=== PATIENT | male | born 1965 | race Caucasian/White ===

== ENCOUNTER 2016-11-25 05:35 | Inpatient (IN) ==
[2016-11-25] MEDS ORDERED: ceFAZolin 2,000 MG in SODIUM CHLORIDE 0.9% 100 ML IV STA (05:41)
[2016-11-25] MEDS ORDERED: DIPH/TET/ACEL PERT BOOSTER VACCINE 0.5 ML VIAL IM ONE ×2 (05:41→05:44)
[2016-11-25] MEDS ORDERED: HYDROmorphone 2 MG/1 ML VIAL IV STA (05:43)
[2016-11-25] MEDS ORDERED: LACTATED RINGERS 1,000 ML IV STA (05:43)
[2016-11-25] MEDS ORDERED: ONDANSETRON 4 MG/2 ML VIAL IV STA (05:43)
[2016-11-25] MEDS ORDERED: ceFAZolin 1,000 MG VIAL ONE (05:44)
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
[2016-11-25] MEDS ORDERED: ACETAMINOPHEN 325 MG TABLET PO PRN (05:49)
[2016-11-25] MEDS ORDERED: ONDANSETRON 4 MG/2 ML VIAL IV PRN ×2 (05:49→08:17)
[2016-11-25] MEDS ORDERED: HYDROmorphone 2 MG/1 ML VIAL ONE (05:56)
[2016-11-25] MEDS ORDERED: ONDANSETRON 4 MG/2 ML VIAL ONE ×2 (05:56→06:15)
--- NOTE | 2016-11-25 05:56 | EKG Report ---
Stationary ECG Study [facility] ER Test Date: 11/25/2016 5:55:52 AM Pat Name: BECKY CODY Department: Room: Gender: M Web Master: VIOLA : 1965 Requested by: Jack Page Order Number: [id number] Reading MD: SAM TAFOYA Intervals [place] Rate: 66 P: 74 PA: 155 QRS: -20 QRSD: 101 T: 58 QT: 435 QTc: 449 Interpretive Statements SINUS RHYTHM SEPTAL MYOCARDIAL INFARCTION, PROBABLY OLD Electronically Signed On 11-27-16 15:10:03 CDT by SAM TAFOYA [email or web address]
[2016-11-25 06:00] LABS: Basophils % 0.2 % (0.0-0.8); Eosinophils # 0.1 10*3/uL (0.0-0.87); Eosinophils % 0.9 % (0.00-10.9); Immature Granulocytes % 0.7 %; Immature Granulocytes Absolute 0.09 #; Lymphocytes % 14.9 % (21.2-54.2); Mean Corpuscular HGB Conc 33.3 GM/DL (32-36); Mean Corpuscular Hemoglobin 30 PG (27-34); Mean Corpuscular Volume 90.5 FL (87-102); Monocytes # 0.9 10*3/uL (0.11-0.8); Monocytes % 7.1 % (1.7-12.7); Neutrophils # 10.1 10*3/uL (1.4-7.4); Neutrophils % 76.2 % (38.7-73.9); Platelet Count 303 T/CUMM (130-400); Red Blood Count 3.98 MC/CUMM (3.8-5.5); Red Cell Distribution Width 13.7 % (9.3-17.3); White Blood Count 13.2 T/CUMM (4-12)
[2016-11-25 06:09] LABS: INR 1.1; PT Patient Result 11.3 SECS; Partial Thromboplastin Time 28.2 SECS (0-40)
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
[2016-11-25] MEDS ORDERED: SUCCINYLCHOLINE 200 MG/10 ML VIAL ONE (06:15)
[2016-11-25] MEDS ORDERED: LIDOCAINE 1% 5 ML VIAL ONE (06:15)
[2016-11-25] MEDS ORDERED: NEOSTIGMINE 10 MG/10 ML VIAL ONE (06:15)
[2016-11-25] MEDS ORDERED: PROPOFOL 200 MG/20 ML VIAL IV ONE (06:15)
[2016-11-25] MEDS ORDERED: GLYCOPYRROLATE 0.4 MG/2 ML VIAL ONE (06:15)
[2016-11-25] MEDS ORDERED: ROCURONIUM 100 MG/10 ML VIAL IV ONE (06:15)
[2016-11-25 06:16] LABS: Lactic Acid 3.6 MMOL/L (0.4-2.0)
[2016-11-25 06:21] LABS: Apearance,Urine CLEAR (Clear); Bilirubin,Urine Negative (Negative); Blood, Urine Negative (Negative); Glucose,Urine (UA) Negative (Negative); Ketones,Urine 5 mg/dL (Negative); Mucus,Urine Few /LPF (Occasional); Nitrite,Urine Negative (Negative); Protein,Urine 30 MG/DL; RBC,Urine 1 /HPF (0-4); Urine Color Yellow (Yellow); Urine Specific Gravity 1.024 (1.001-1.035); WBC,Urine 1 /HPF (0-6)
[2016-11-25 06:33] LABS: Barbiturates Screen,Urine Negative (Negative); Benzodiazepines Screen,Urine Negative (Negative); Cannabinoid Screen,Urine Positive (Negative); Opiate Screen,Urine Negative (Negative); Phencyclidine Screen,Urine Negative (Negative)
[2016-11-25 06:47] LABS: Alanine Aminotransferase 21 U/L (16-61); Albumin 2.3 G/DL (3.4-5.0); Alkaline Phosphatase 47 U/L (45-117); Amylase 31 U/L (25-115); Aspartate Amino Transferase 21 U/L (0-37); Blood Urea Nitrogen 17 MG/DL (7-18); Calcium 7.7 MG/DL (8.5-10.1); Glucose 118 MG/DL (74-106); Osmolality,Calculated 283.3 MOS/KG (273-304); Potassium 3.9 MMOL/L (3.5-5.1); Sodium 141 MMOL/L (136-145); Total Protein 4.6 G/DL (6.4-8.3)
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
[2016-11-25] MEDS ORDERED: MIDAZOLAM 2 MG/2 ML VIAL ONE (08:33)
[2016-11-25] MEDS ORDERED: SEVOFLURANE 1 UNIT/15 MINUTE INH ONE (08:33)
[2016-11-25] MEDS ORDERED: LACTATED RINGERS 2,000 ML IV ONE (08:33)
[2016-11-25] MEDS ORDERED: fentaNYL 100 MCG/2 ML VIAL ONE (08:33)
[2016-11-25] MEDS ORDERED: HYDROmorphone PCA 30 MG/30 ML SYRINGE IV ONE (08:46)
[2016-11-25] MEDS: HYDROmorphone PCA 30 MG/30 ML SYRINGE IV SCH (08:48)
[2016-11-25 08:55] LABS: Hematocrit 36.4 VOL% (42.0-52.0); Hemoglobin 12.1 GM/DL (14.0-18.0)
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
[2016-11-25] MEDS: SODIUM CHLORIDE 0.9% 1,000 ML IV SCH ×3 (09:40→23:21)
[2016-11-25] MEDS: PANTOPRAZOLE 40 MG TABLET PO SCH (09:41)
[2016-11-25] MEDS: PANTOPRAZOLE 40 MG VIAL IV SCH (09:50)
[2016-11-25] MEDS: KETOROLAC 15 MG/1 ML VIAL IV SCH ×3 (09:51→21:04)
[2016-11-25 12:29] LABS: Bilirubin,Total < 0.39 MG/DL (0.2-1.0)
[2016-11-25] MEDS: metroNIDAZOLE INJ 500 MG in PREMIX 1 EACH IV SCH ×2 (14:17→21:38)
--- NOTE | 2016-11-25 14:30 | Anesthesia Post-Op ---
Anesthesia Post OP - Post Ansesthetic Evaluation Patient seen in post op: Yes Resp: within normal limits CV: within normal limits Mental: within normal limits Temp: within normal limits Uzky-Ky-[id number]: within normal limits Nausea and Vomiting: within normal limits Pain: within normal limits
[2016-11-25] MEDS: ceFAZolin 2,000 MG in PREMIX 1 EACH IV SCH ×2 (15:22→21:59)
[2016-11-25 16:34] LABS: Hematocrit 32.9 VOL% (42.0-52.0); Hemoglobin 11.1 GM/DL (14.0-18.0)
[2016-11-25] MEDS ORDERED: SODIUM CHLORIDE 0.9% 1,000 ML IV ONE (22:14)
[2016-11-26 00:30] LABS: Basophils % 0.1 % (0.0-0.8); Eosinophils % 0.1 % (0.00-10.9); Hematocrit 29.9 VOL% (42.0-52.0); Hemoglobin 9.8 GM/DL (14.0-18.0); Immature Granulocytes % 0.5 %; Immature Granulocytes Absolute 0.05 #; Lymphocytes # 1.3 10*3/uL (1.4-4.0); Mean Corpuscular HGB Conc 32.8 GM/DL (32-36); Mean Corpuscular Hemoglobin 31 PG (27-34); Mean Corpuscular Volume 93.4 FL (87-102); Mean Platelet Volume 9.9 FL (9.6-12.0); Monocytes # 0.6 10*3/uL (0.11-0.8); Monocytes % 5.5 % (1.7-12.7); Neutrophils % 81.8 % (38.7-73.9); Platelet Count 237 T/CUMM (130-400)
[2016-11-26 00:59] LABS: Albumin 2.1 G/DL (3.4-5.0); Bilirubin,Total 0.4 MG/DL (0.2-1.0); Calcium 7.2 MG/DL (8.5-10.1); Osmolality,Calculated 292.6 MOS/KG (273-304); Potassium 4.1 MMOL/L (3.5-5.1); Total Protein 4.5 G/DL (6.4-8.3)
[2016-11-26] MEDS: KETOROLAC 15 MG/1 ML VIAL IV SCH ×4 (02:51→20:13)
[2016-11-26 03:47] LABS: Platelet Estimate Normal
[2016-11-26] MEDS: SODIUM CHLORIDE 0.9% 1,000 ML IV SCH (06:20)
[2016-11-26] MEDS: ceFAZolin 2,000 MG in PREMIX 1 EACH IV SCH ×3 (06:37→21:59)
[2016-11-26] MEDS: metroNIDAZOLE INJ 500 MG in PREMIX 1 EACH IV SCH ×3 (07:02→22:49)
[2016-11-26] MEDS: PANTOPRAZOLE 40 MG VIAL IV SCH (09:10)
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
[2016-11-26] MEDS: PANTOPRAZOLE 40 MG TABLET PO SCH (12:36)
[2016-11-26] MEDS: HYDROmorphone PCA 30 MG/30 ML SYRINGE IV SCH (12:41)
[2016-11-26] MEDS: DEXT 5% NACL 0.45% KCL 40 MEQ 40 MEQ/1,000 ML BAG IV SCH ×2 (13:11→14:09)
[2016-11-26] MEDS: CARVEDILOL 3.125 MG TABLET PO SCH (20:14)
[2016-11-27] MEDS: DEXT 5% NACL 0.45% KCL 40 MEQ 40 MEQ/1,000 ML BAG IV SCH ×3 (00:02→19:25)
[2016-11-27] MEDS: KETOROLAC 15 MG/1 ML VIAL IV SCH ×4 (02:14→21:55)
[2016-11-27] MEDS: metroNIDAZOLE INJ 500 MG in PREMIX 1 EACH IV SCH (05:38)
[2016-11-27 06:13] LABS: Basophils % 0.2 % (0.0-0.8); Eosinophils # 0.2 10*3/uL (0.0-0.87); Eosinophils % 2.5 % (0.00-10.9); Hematocrit 25.4 VOL% (42.0-52.0); Hemoglobin 8.2 GM/DL (14.0-18.0); Immature Granulocytes % 0.4 %; Lymphocytes # 1.6 10*3/uL (1.4-4.0); Lymphocytes % 19.3 % (21.2-54.2); Mean Corpuscular HGB Conc 32.3 GM/DL (32-36); Mean Corpuscular Hemoglobin 30 PG (27-34); Mean Corpuscular Volume 94.1 FL (87-102); Mean Platelet Volume 10.7 FL (9.6-12.0); Monocytes # 0.8 10*3/uL (0.11-0.8); Monocytes % 9.9 % (1.7-12.7); Neutrophils # 5.7 10*3/uL (1.4-7.4); Neutrophils % 67.7 % (38.7-73.9); Platelet Count 216 T/CUMM (130-400); Red Cell Distribution Width 13.9 % (9.3-17.3); White Blood Count 8.4 T/CUMM (4-12)
[2016-11-27 06:14] LABS: Immature Granulocytes Absolute 0.03 #
[2016-11-27] MEDS: ceFAZolin 2,000 MG in PREMIX 1 EACH IV SCH (06:33)
[2016-11-27 06:37] LABS: Calcium 7.5 MG/DL (8.5-10.1); Osmolality,Calculated 279.3 MOS/KG (273-304)
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
[2016-11-27] MEDS: PANTOPRAZOLE 40 MG TABLET PO SCH (10:40)
[2016-11-27] MEDS: CARVEDILOL 3.125 MG TABLET PO SCH ×2 (10:40→21:54)
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
[2016-11-27 12:50] LABS: Basophils % 0.3 % (0.0-0.8); Eosinophils # 0.3 10*3/uL (0.0-0.87); Eosinophils % 3.8 % (0.00-10.9); Hematocrit 28.5 VOL% (42.0-52.0); Hemoglobin 9.3 GM/DL (14.0-18.0); Immature Granulocytes % 0.6 %; Immature Granulocytes Absolute 0.04 #; Lymphocytes # 1.6 10*3/uL (1.4-4.0); Lymphocytes % 22.1 % (21.2-54.2); Mean Corpuscular HGB Conc 32.6 GM/DL (32-36); Mean Corpuscular Hemoglobin 31 PG (27-34); Mean Corpuscular Volume 93.4 FL (87-102); Monocytes # 0.6 10*3/uL (0.11-0.8); Monocytes % 8.5 % (1.7-12.7); Neutrophils # 4.7 10*3/uL (1.4-7.4); Neutrophils % 64.7 % (38.7-73.9); Platelet Count 233 T/CUMM (130-400); Red Blood Count 3.05 MC/CUMM (3.8-5.5); Red Cell Distribution Width 13.6 % (9.3-17.3); White Blood Count 7.2 T/CUMM (4-12)
[2016-11-27] MEDS: HYDROmorphone PCA 30 MG/30 ML SYRINGE IV SCH (22:00)
[2016-11-28] MEDS: KETOROLAC 15 MG/1 ML VIAL IV SCH (03:25)
[2016-11-28] MEDS: DEXT 5% NACL 0.45% KCL 40 MEQ 40 MEQ/1,000 ML BAG IV SCH (05:38)
[2016-11-28 06:34] LABS: Basophils % 0.1 % (0.0-0.8); Eosinophils # 0.4 10*3/uL (0.0-0.87); Eosinophils % 3.9 % (0.00-10.9); Hematocrit 26.3 VOL% (42.0-52.0); Hemoglobin 8.7 GM/DL (14.0-18.0); Immature Granulocytes % 0.6 %; Immature Granulocytes Absolute 0.06 #; Lymphocytes # 1.4 10*3/uL (1.4-4.0); Lymphocytes % 14.3 % (21.2-54.2); Mean Corpuscular HGB Conc 33.1 GM/DL (32-36); Mean Corpuscular Hemoglobin 30 PG (27-34); Mean Platelet Volume 10.5 FL (9.6-12.0); Monocytes # 0.7 10*3/uL (0.11-0.8); Monocytes % 7.6 % (1.7-12.7); Neutrophils # 7.1 10*3/uL (1.4-7.4); Neutrophils % 73.5 % (38.7-73.9); Platelet Count 269 T/CUMM (130-400); Red Blood Count 2.86 MC/CUMM (3.8-5.5); Red Cell Distribution Width 13.2 % (9.3-17.3); White Blood Count 9.7 T/CUMM (4-12)
[2016-11-28] MEDS: CARVEDILOL 3.125 MG TABLET PO SCH ×2 (07:59→20:56)
[2016-11-28] MEDS: PANTOPRAZOLE 40 MG TABLET PO SCH (08:00)
[2016-11-28] MEDS: HYDROmorphone PCA 30 MG/30 ML SYRINGE IV SCH (08:00)
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
[2016-11-29] MEDS: DEXT 5% NACL 0.45% KCL 40 MEQ 40 MEQ/1,000 ML BAG IV SCH ×2 (04:32→07:59)
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
[2016-11-29] MEDS: HYDROmorphone PCA 30 MG/30 ML SYRINGE IV SCH (08:00)
[2016-11-29] MEDS: PANTOPRAZOLE 40 MG TABLET PO SCH (08:00)
[2016-11-29] MEDS: CARVEDILOL 3.125 MG TABLET PO SCH ×2 (08:00→21:11)
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
[2016-11-29] MEDS ORDERED: HYDROmorphone 2 MG/1 ML VIAL IV PRN (08:13)
[2016-11-29] MEDS: ALUMINUM/MAGNES/SIMETH MAX STR 30 ML UDCUP PO SCH ×3 (09:30→17:33)
[2016-11-29] MEDS: DOCUSATE SODIUM 100 MG CAPSULE PO SCH ×2 (09:30→21:11)
[2016-11-29] MEDS: oxyCODONE/ACETAMINOPHEN 5-325 MG TABLET PO PRN ×2 (10:30→16:15)
[2016-11-30 05:27] LABS: Basophils % 0.4 % (0.0-0.8); Eosinophils # 0.4 10*3/uL (0.0-0.87); Eosinophils % 5.4 % (0.00-10.9); Hematocrit 31.1 VOL% (42.0-52.0); Hemoglobin 10.7 GM/DL (14.0-18.0); Immature Granulocytes % 1.8 %; Immature Granulocytes Absolute 0.14 #; Lymphocytes # 1.4 10*3/uL (1.4-4.0); Lymphocytes % 18.7 % (21.2-54.2); Mean Corpuscular HGB Conc 34.4 GM/DL (32-36); Mean Corpuscular Hemoglobin 31 PG (27-34); Mean Corpuscular Volume 90.1 FL (87-102); Mean Platelet Volume 9.5 FL (9.6-12.0); Monocytes # 1.1 10*3/uL (0.11-0.8); Monocytes % 14.6 % (1.7-12.7); Neutrophils # 4.6 10*3/uL (1.4-7.4); Neutrophils % 59.1 % (38.7-73.9); Platelet Count 379 T/CUMM (130-400); Red Blood Count 3.45 MC/CUMM (3.8-5.5); Red Cell Distribution Width 13.2 % (9.3-17.3); White Blood Count 7.7 T/CUMM (4-12)
[2016-11-30 05:54] LABS: Calcium 8.6 MG/DL (8.5-10.1); Magnesium 2.3 MG/DL (1.8-2.4); Osmolality,Calculated 279.4 MOS/KG (273-304); Potassium 4.8 MMOL/L (3.5-5.1)
[2016-11-30] MEDS: oxyCODONE/ACETAMINOPHEN 5-325 MG TABLET PO PRN ×2 (07:46→17:20)
[2016-11-30] MEDS ORDERED: MAGNESIUM HYDROXIDE SUSP 30 ML UDCUP PO ONE (07:52)
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
[2016-11-30] MEDS: DOCUSATE SODIUM 100 MG CAPSULE PO SCH ×2 (09:46→21:44)
[2016-11-30] MEDS: PANTOPRAZOLE 40 MG TABLET PO SCH (09:46)
[2016-11-30] MEDS: CARVEDILOL 3.125 MG TABLET PO SCH ×2 (09:46→21:45)
[2016-11-30] MEDS: ALUMINUM/MAGNES/SIMETH MAX STR 30 ML UDCUP PO SCH ×3 (09:48→17:20)
[2016-12-01] MEDS: oxyCODONE/ACETAMINOPHEN 5-325 MG TABLET PO PRN (06:47)
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
[2016-12-01] MEDS: ALUMINUM/MAGNES/SIMETH MAX STR 30 ML UDCUP PO SCH (09:01)
[2016-12-01] MEDS: DOCUSATE SODIUM 100 MG CAPSULE PO SCH (09:01)
[2016-12-01] MEDS: PANTOPRAZOLE 40 MG TABLET PO SCH (09:01)
[2016-12-01] MEDS: CARVEDILOL 3.125 MG TABLET PO SCH (09:01)
[2016-12-01 11:15] VITALS: BP 125/70
== END 2016-12-01 12:30 | disposition home or self-care (01) | DRG 330 ==
LOC: N.ED 05:35 → N.EDINP 05:49 → N.CC 06:05 → N.3E 11-26 18:11
PROVIDERS: ADMIT Specialist; ATTEND Specialist

== ENCOUNTER 2020-07-12 14:18 | Observation (INO) ==
[2020-07-12] MEDS ORDERED: SODIUM CHLORIDE 0.9% 1,000 ML IV STA (15:15)
[2020-07-12 15:30] LABS: Basophils % 0.3 % (0.0-0.8); Eosinophils # 0.1 10*3/uL (0.0-0.87); Eosinophils % 0.8 % (0.00-10.9); Hematocrit 43.8 VOL% (42.0-52.0); Hemoglobin 13.7 GM/DL (14.0-18.0); Immature Granulocytes % 0.4 %; Immature Granulocytes Absolute 0.05 #; Lymphocytes # 1.1 10*3/uL (1.4-4.0); Lymphocytes % 9.4 % (21.2-54.2); Mean Corpuscular HGB Conc 31.3 GM/DL (32-36); Mean Corpuscular Volume 96.1 FL (87-102); Mean Platelet Volume 9.1 FL (9.6-12.0); Monocytes % 4.2 % (1.7-12.7); Neutrophils % 84.9 % (38.7-73.9); Platelet Count 418 T/CUMM (130-400); Red Blood Count 4.56 MC/CUMM (3.8-5.5); Red Cell Distribution Width 12.6 % (9.3-17.3); White Blood Count 11.4 T/CUMM (4-12)
[2020-07-12 15:44] LABS: Calcium 8.6 MG/DL (8.5-10.1); Osmolality,Calculated 285.3 MOS/KG (273-304)
[2020-07-12 16:50] LABS: Barbiturates Screen,Urine Negative (Negative); Benzodiazepines Screen,Urine Negative (Negative); Cannabinoid Screen,Urine Positive (Negative); Opiate Screen,Urine Negative (Negative); Phencyclidine Screen,Urine Negative (Negative)
[2020-07-12] MEDS ORDERED: DEXTROSE 50% 25 GM/50 ML VIAL IV PRN (18:33)
[2020-07-12] MEDS ORDERED: ACETAMINOPHEN 325 MG TABLET PO PRN (18:33)
[2020-07-12] MEDS ORDERED: GLUCAGON 1 MG VIAL IM PRN (18:33)
[2020-07-12] MEDS ORDERED: ONDANSETRON 4 MG/2 ML VIAL IV PRN (18:33)
[2020-07-12] MEDS ORDERED: SODIUM CHLORIDE 0.9% 1,000 ML IV SCH (19:00)
[2020-07-12] MEDS ORDERED: ENOXAPARIN 40 MG/0.4 ML SYRINGE SUBCUT SCH (21:00)
[2020-07-13 05:01] LABS: Basophils % 0.4 % (0.0-0.8); Eosinophils # 0.4 10*3/uL (0.0-0.87); Eosinophils % 5.1 % (0.00-10.9); Hematocrit 42.8 VOL% (42.0-52.0); Hemoglobin 13.4 GM/DL (14.0-18.0); Immature Granulocytes % 0.3 %; Immature Granulocytes Absolute 0.02 #; Lymphocytes # 2.6 10*3/uL (1.4-4.0); Lymphocytes % 38.3 % (21.2-54.2); Mean Corpuscular HGB Conc 31.3 GM/DL (32-36); Mean Corpuscular Volume 96.4 FL (87-102); Mean Platelet Volume 9.5 FL (9.6-12.0); Neutrophils % 46.9 % (38.7-73.9); Platelet Count 389 T/CUMM (130-400); Red Blood Count 4.44 MC/CUMM (3.8-5.5); Red Cell Distribution Width 12.7 % (9.3-17.3); White Blood Count 6.9 T/CUMM (4-12)
[2020-07-13 05:15] LABS: Calcium 8.6 MG/DL (8.5-10.1); Osmolality,Calculated 276.5 MOS/KG (273-304)
[2020-07-13] MEDS ORDERED: PANTOPRAZOLE 40 MG TABLET PO SCH (09:00)
[2020-07-13 11:38] VITALS: BP 110/57
== END 2020-07-13 13:48 | disposition home or self-care (01) ==
LOC: EDBD → EDUNIT# → N.EDINP 14:18 → N.ED 14:18 → SUATTDRO 18:33 → N.5E 19:40
PROVIDERS: ADMIT Family Medicine; ATTEND Emergency Medicine